=== PATIENT | female | born 1975 | race Caucasian/White ===

== ENCOUNTER 2016-11-02 11:21 | Emergency (ER) | payer BC ==
[~2016-11-02] VITALS: Ht 172.7 cm; Wt 84.2 kg
[~2016-11-02 11:21] MED LIST: BENADRYL50 MG PO; BUTORPHANO10 MG/1 ML ALT NARES; CARAFATE100 MG/ML PO; CLARITIN10 MG PO; CYMBALTA20 MG PO; Calcium Carbonate,Ca PO; DELTASONE20 M1 PO; DILAUDID2 MG PO; DILAUDID4 MG PO; EFFEXOR75 MG PO; EMEND80 MG; ENDOCET 5-3251 EACH PO; ERGOCALCIF50000 UNIT PO; FEMARA2.5 MG PO; FIORICET,ESG1 TABLET PO; FLINTSTONES1 TABLET PO; FLUOXETINE HCL20 MG PO; HYCODAN SYRUP480 ML PO; HYDROCODON-ACE1 EAC7 PO; HYOSCYAMINE0.125 MG PO; KYTRIL1 MG; LATUDA20 MG PO; LEVOFLOXACIN750 MG PO; MEDROL DOSEPAK4 MG PO; METRONIDAZOLE500 MG PO; MOTRIN600 MG PO; NEXIUM40 MG PO; NOLVADEX20 MG PO; OXYCODONE HCL5 MG PO; OxyCONTIN PO; PERCOCET 5/31 TABLET PO; PREDNISONE20 MG PO; PROAIR HFA8.5 GM IH; PROMETHAZINE HC25 M1 PO; Phenergan PO; REGLAN10 MG PO; RISPERIDONE0.5 MG PO; SKELAXIN800 MG PO; SUMATRIPTAN SU100 MG PO; TAMOXIFEN CITRA20 MG PO; TOPIRAMATE25 MG PO; TRAMADOL HCL50 MG PO; VITAMIN D50000 UNI1 PO; ZOFRAN8 M1 PO; ZOLOFT25 MG PO
[2016-11-02] MEDS ORDERED: MEDROL DOSEPAK4 MG PO (15:48)
[2016-11-02 15:51] VITALS: BP 110/66
== END 2016-11-02 15:52 | disposition home or self-care (01) ==
LOC: EME 11:21
DX: G43.909 Migraine, unspecified, not intractable, without status migrainosus (principal); Z87.442 Personal history of urinary calculi; K21.9 Gastro-esophageal reflux disease without esophagitis
CPT/HCPCS: 99281; 99283; J1100; J1200; J1885; J2765; J7030

== ENCOUNTER 2016-11-17 10:07 | Emergency (ER) | payer BC ==
[~2016-11-17] VITALS: Ht 172.7 cm; Wt 81.7 kg
[2016-11-17 12:03] LABS: INFLUENZA A VIRAL ANTIGEN NEGATIVE; INFLUENZA B VIRAL ANTIGEN NEGATIVE
[2016-11-17 12:10] LABS: EOSINOPHIL (%) 0 % (0-5); HEMATOCRIT 34.8 % (36.0-46.0); IMMATURE GRANULOCYTE (%) 0.2 % (0.0-0.7); IMMATURE GRANULOCYTE COUNT 0.3 K/uL; LYMPHOCYTE COUNT 1.1 K/uL (1.0-2.8); MCH 33.5 PG (29.0-34.0); MCHC 34.5 G/DL (30.0-36.0); MCV 97.2 FL (83-99); MEAN PLAT.VOLUME 9.8 uM^3 (9.5-12.4); MONOCYTE COUNT 0.5 K/uL (0-0.8); NEUTROPHIL (%) 89.4 % (45-76); NEUTROPHIL COUNT 13.5 K/uL (1.8-6.4); PLATELET COUNT 210 K/uL (156-360); RBC DIS.WIDTH-CV 12.2 % (11.8-14.6); RBC DIS.WIDTH-SD 41.3 % (39-53); RED BLOOD COUNT 3.58 M/uL (3.80-5.20); WHITE BLOOD COUNT 15.1 K/uL (4.1-10.2)
[2016-11-17 12:37] LABS: INTERNAL CONTROL VALID? YES; MONOSPOT (MONONUCLEOSIS SEROL) NEGATIVE
[2016-11-17 12:38] LABS: ANION GAP 10 MEQ/L (2-14); CHLORIDE 112 MEQ/L (99-109); POTASSIUM 3.5 MEQ/L (3.7-5.4); SAMPLE HEMOLYSIS CHECK 0; SAMPLE ICTERIC CHECK 0; SAMPLE LIPEMIA CHECK 0; SODIUM 140 MEQ/L (136-147); TOTAL BILIRUBIN 0.5 MG/DL (0.0-1.0)
[2016-11-17 12:44] LABS: ALKALINE PHOSPHATASE 48 IU/L (3-129); GFR ESTIMATE (CALCULATED) > 59 mL/min/; GLUCOSE 101 mg/dL (70-99); UREA NITROGEN (BUN) 14 mg/dL (9-23)
[2016-11-17 12:48] LABS: QUANTITATIVE HCG < 4.0 MIU/ML
[2016-11-17 14:00] LABS: ADD MIUA? YES; BILIRUBIN NEGATIVE; BLOOD SMALL; COLOR YELLOW ((YELLOW)); GLUCOSE (STRIP) NEGATIVE; KETONES 20; LEUKOCYTES NEGATIVE; NITRITE NEGATIVE; PROTEIN (STRIP) NEGATIVE; SPECIFIC GRAVITY 1.015 (1.000-1.030); UROBILINOGEN 0.2 MG/DL (0.2-1.0)
[2016-11-17] MEDS ORDERED: ULTRAM50 MG PO (14:02)
[2016-11-17] MEDS ORDERED: ZOFRAN ODT8 MG PO (14:02)
[2016-11-17] MEDS ORDERED: MOTRIN600 MG PO (14:02)
[2016-11-17 14:12] LABS: BACTERIA NONE SEEN /HPF; EPITHELIAL CELLS RARE /HPF; MUCUS TRACE /LPF; RED BLOOD CELLS 0-5 /HPF (0-5); WHITE BLOOD CELLS 0-5 /HPF (0-5)
[2016-11-17 14:40] VITALS: BP 110/58
== END 2016-11-17 14:41 | disposition home or self-care (01) ==
LOC: EME 10:07
PROVIDERS: Emergency Medicine
DX: J02.0 Streptococcal pharyngitis (principal); Z86.000 Personal history of in-situ neoplasm of breast; Z90.13 Acquired absence of bilateral breasts and nipples; Z88.6 Allergy status to analgesic agent
CPT/HCPCS: 71010; 80053; 81003; 83605; 84702; 85025; 86308; 87040; 87502; 87651 90; 99281; 99285; J0561; J1100; J1170; J1885; J2405; J7030; J7050

== ENCOUNTER → 2017-06-01 | Outpatient (CLI) | payer BC ==
[~2017-06-01] MED LIST changes: +ULTRAM50 MG PO; +ZOFRAN ODT8 MG PO
== END | disposition home or self-care (01) ==
LOC: NUC 09:46
DX: Q76.49 Other congenital malformations of spine, not associated with scoliosis (principal); R93.7 Abnormal findings on diagnostic imaging of other parts of musculoskeletal system; Z85.3 Personal history of malignant neoplasm of breast
CPT/HCPCS: 78306; A9503

== ENCOUNTER 2017-07-03 09:16 | Emergency (ER) | payer BC ==
[~2017-07-03] VITALS: Ht 167.6 cm; Wt 81.4 kg
[2017-07-03 10:16] LABS: HEMATOCRIT 41.4 % (36.0-46.0); MCHC 34.5 G/DL (30.0-36.0); MCV 95.6 FL (83-99); PLATELET COUNT 258 K/uL (156-360); RBC DIS.WIDTH-CV 11.9 % (11.8-14.6); RBC DIS.WIDTH-SD 41.6 % (39-53); RED BLOOD COUNT 4.33 M/uL (3.80-5.20); WHITE BLOOD COUNT 10.5 K/uL (4.1-10.2)
[2017-07-03 10:30] LABS: CHLORIDE 108 mEq/L (99-109); SODIUM 140 mEq/L (136-147)
[2017-07-03 10:32] LABS: GLUCOSE 85 mg/dL (70-99)
[2017-07-03 10:33] LABS: ANION GAP 10 MEQ/L (2-14)
[2017-07-03 10:33] LABS: INFLUENZA A VIRAL ANTIGEN NEGATIVE; INFLUENZA B VIRAL ANTIGEN NEGATIVE
[2017-07-03 10:36] LABS: GFR ESTIMATE (CALCULATED) > 59 mL/min/; UREA NITROGEN (BUN) 13 mg/dL (9-23)
[2017-07-03] MEDS ORDERED: ZITHROMAX Z-PA250 MG PO (14:43)
[2017-07-03 15:30] VITALS: BP 100/56
== END 2017-07-03 15:35 | disposition home or self-care (01) ==
LOC: EME 09:16
DX: B34.9 Viral infection, unspecified (principal); J02.0 Streptococcal pharyngitis; Z85.3 Personal history of malignant neoplasm of breast; K21.9 Gastro-esophageal reflux disease without esophagitis; J45.909 Unspecified asthma, uncomplicated; F32.9 Major depressive disorder, single episode, unspecified; Z87.442 Personal history of urinary calculi; Z90.13 Acquired absence of bilateral breasts and nipples; Z88.8 Allergy status to other drugs, medicaments and biological substances
CPT/HCPCS: 71020; 80048; 85027; 87502; 87651 90; 99281; 99284; J1100; J1885; J2270; J7030

== ENCOUNTER 2017-11-12 10:32 | Emergency (ER) | payer BC ==
[~2017-11-12] VITALS: Ht 170.2 cm; Wt 90.9 kg
[~2017-11-12 10:32] MED LIST changes: +ZITHROMAX Z-PA250 MG PO
[2017-11-12 14:01] LABS: APPEARANCE SL.HAZY ((CLEAR)); BILIRUBIN NEGATIVE; BLOOD SMALL; COLOR YELLOW ((YELLOW)); GLUCOSE (STRIP) NEGATIVE; KETONES NEGATIVE; LEUKOCYTES NEGATIVE; NITRITE NEGATIVE; PROTEIN (STRIP) NEGATIVE; UROBILINOGEN 0.2 MG/DL (0.2-1.0)
[2017-11-12 14:05] LABS: BACTERIA NONE SEEN /HPF; EPITHELIAL CELLS 1+ /HPF; MUCUS TRACE /LPF; RED BLOOD CELLS 0-5 /HPF (0-5); UCUL ADDED? NO; WHITE BLOOD CELLS 0-5 /HPF (0-5)
[2017-11-12 14:20] VITALS: BP 106/77
== END 2017-11-12 14:21 | disposition home or self-care (01) ==
LOC: EME 10:32
PROVIDERS: Physician Assistant
DX: M54.16 Radiculopathy, lumbar region (principal); G89.29 Other chronic pain; Z85.3 Personal history of malignant neoplasm of breast; Z90.10 Acquired absence of unspecified breast and nipple; Z88.5 Allergy status to narcotic agent
CPT/HCPCS: 72100; 72220; 81003; 99281; 99283; J1100; J1885; J2405; J3010

== ENCOUNTER 2017-12-06 03:58 | Emergency (ER) | payer BC ==
[~2017-12-06] VITALS: Ht 172.7 cm; Wt 89.5 kg
[2017-12-06 05:40] LABS: ALBUMIN 4.9 g/dL (3.2-4.8); CHLORIDE 108 mEq/L (99-109); POTASSIUM 4.3 mEq/L (3.7-5.4); SODIUM 140 mEq/L (136-147)
[2017-12-06 05:43] LABS: GLUCOSE 105 mg/dL (70-99); TOTAL PROTEIN 8.2 g/dL (6.4-8.3)
[2017-12-06 05:46] LABS: ALKALINE PHOSPHATASE 68 IU/L (3-129); CREATININE 0.9 mg/dL (0.6-1.3); GFR ESTIMATE (CALCULATED) > 59 mL/min/
[2017-12-06 05:47] LABS: UREA NITROGEN (BUN) 13 mg/dL (9-23)
[2017-12-06 05:48] LABS: AST (GOT) 44 IU/L (2-34)
[2017-12-06 05:49] LABS: ALT (GPT) 38 IU/L (3-49)
[2017-12-06 05:53] LABS: HEMATOCRIT 43.9 % (36.0-46.0); HEMOGLOBIN 15.7 G/DL (11.9-15.5); MCH 33.2 PG (29.0-34.0); MCHC 35.8 G/DL (30.0-36.0); MCV 92.8 FL (83-99); PLATELET COUNT 313 K/uL (156-360); RBC DIS.WIDTH-CV 11.6 % (11.8-14.6); RBC DIS.WIDTH-SD 39.9 % (39-53); RED BLOOD COUNT 4.73 M/uL (3.80-5.20); WHITE BLOOD COUNT 10.6 K/uL (4.1-10.2)
[2017-12-06 05:55] LABS: QUANTITATIVE HCG < 4.0 MIU/ML
[2017-12-06 06:13] LABS: LIPASE 51 U/L (1.0-51.0)
[2017-12-06 06:33] LABS: APPEARANCE SL.HAZY ((CLEAR)); BILIRUBIN NEGATIVE; BLOOD SMALL; COLOR AMBER ((YELLOW)); GLUCOSE (STRIP) NEGATIVE; KETONES 5; LEUKOCYTES NEGATIVE; NITRITE NEGATIVE; PROTEIN (STRIP) 30; SPECIFIC GRAVITY 1.028 (1.000-1.030); UROBILINOGEN 0.2 MG/DL (0.2-1.0)
[2017-12-06 06:52] LABS: BACTERIA RARE /HPF; CALCIUM OXALATE CRYSTALS 3+ /HPF; EPITHELIAL CELLS 1+ /HPF; MUCUS 1+ /LPF; RED BLOOD CELLS 0-5 /HPF (0-5); UCUL ADDED? NO; WHITE BLOOD CELLS 0-5 /HPF (0-5)
[2017-12-06 07:49] LABS: TROP-I INTERPRETATION NEGATIVE; TROPONIN-I < 0.01 ng/mL (0.0-0.30)
[2017-12-06 13:17] VITALS: BP 100/59
== END 2017-12-06 12:33 | disposition home or self-care (01) ==
LOC: EME 03:58
DX: R10.9 Unspecified abdominal pain (principal); R11.0 Nausea; R19.7 Diarrhea, unspecified; M54.5 Low back pain; R05 Cough; R79.1 Abnormal coagulation profile; K76.0 Fatty (change of) liver, not elsewhere classified; Z87.442 Personal history of urinary calculi; Z85.3 Personal history of malignant neoplasm of breast; Z90.13 Acquired absence of bilateral breasts and nipples; Z90.722 Acquired absence of ovaries, bilateral; Z92.21 Personal history of antineoplastic chemotherapy
CPT/HCPCS: 71045; 74177; 78582; 80053; 81003; 83605; 83690; 84484; 84702; 85027; 85379; 99281; 99285; A9540; A9567; J2270; J2405; J7030

== ENCOUNTER → 2018-03-08 | Outpatient (CLI) | payer BC | END | disposition home or self-care (01) | LOC: NUC 08:30 | DX: K31.84 Gastroparesis (principal); R11.0 Nausea; Z87.19 Personal history of other diseases of the digestive system | CPT/HCPCS: 78264; A9541 ==